=== PATIENT | female | born 1960 | race Caucasian/White ===

== ENCOUNTER 2021-02-01 14:32 | Outpatient (CLI) | payer SELFPAY ==
[2021-02-01 14:45] LABS: Hematocrit 38.1 % (35.0-49.0); Hemoglobin 12.8 g/dL (12.0-15.0); Mean Corpuscular HGB Conc 33.6 g/dL (32.0-36.0); Mean Corpuscular Hemoglobin 33.5 pg (27.0-31.0); Mean Corpuscular Volume 99.7 fL (78.0-102.0); Mean Platelet Volume 8.3 fl (9.2-11.8); Platelet Count Result 286 K/mm3 (150-420); Red Blood Count 3.82 M/mm3 (4.20-5.40); Red Cell Distribution Width 13.6 % (11.6-14.4); White Blood Count 7.8 K/mm3 (4.8-10.8)
[2021-02-01 15:50] LABS: Alanine Aminotransferase 26 U/L (14-59); Albumin Level 4.2 g/dL (3.4-5.0); Alkaline Phosphatase 71 U/L (46-116); Anion Gap 12 mmol/L (8-16); Aspartate Amino Transferase 15 U/L (15-37); Bilirubin,Total 0.5 mg/dL (0.00-1.00); Blood Urea Nitrogen 16 mg/dL (7-18); Calcium 9.2 mg/dL (8.5-10.1); Carbon Dioxide 28 mmol/L (21-32); Chloride 105 mmol/L (98-108); Cholesterol 300 mg/dL (0-200); Estimated Glomerular Filt Rate 54; Glucose 94 mg/dL (70-99); HDL Direct 53 mg/dL (40-60); LDL Cholesterol Calculated 206 mg/dL (<130); Osmolality Calculated 301 mOsm/kg (285-295); Sodium 145 mmol/L (136-145); Total Protein 7.2 g/dL (6.4-8.2); Triglycerides 206 mg/dL (0-150)
[2021-02-01 15:51] LABS: Thyroid Stimulating Hormone Reflex 51.36 u/IU/mL (0.36-3.74)
[2021-02-01 15:52] LABS: Free T4 Free Thyroxine Reflex 0.31 ng/dL (0.76-1.46)
== END 2021-02-01 14:33 | disposition home or self-care (01) ==
LOC: CHSLAB 14:34
PROVIDERS: PCP Family Medicine; Visit Provider Family Medicine
DX: Z00.00 Encounter for general adult medical examination without abnormal findings (principal); E11.9 Type 2 diabetes mellitus without complications; E03.9 Hypothyroidism, unspecified
CPT/HCPCS: 36415; 80053; 80061; 84439; 84443; 85027